=== PATIENT | male | born 1960 | race Caucasian/White ===

== ENCOUNTER 2017-04-10 13:24 | Inpatient (IN) | END 2017-04-22 17:40 | DRG 871 | DX: A41.9 Sepsis, unspecified organism (principal); E13.10 Other specified diabetes mellitus with ketoacidosis without coma; G92 Toxic encephalopathy; E87.2 Acidosis; D61.818 Other pancytopenia; D68.9 Coagulation defect, unspecified; K26.9 Duodenal ulcer, unspecified as acute or chronic, without hemorrhage or perforation; K92.2 Gastrointestinal hemorrhage, unspecified; N39.0 Urinary tract infection, site not specified; I85.00 Esophageal varices without bleeding; K92.1 Melena; Y90.8 Blood alcohol level of 240 mg/100 ml or more; F17.200 Nicotine dependence, unspecified, uncomplicated; G89.29 Other chronic pain; G62.9 Polyneuropathy, unspecified; D69.6 Thrombocytopenia, unspecified; R26.2 Difficulty in walking, not elsewhere classified; D64.9 Anemia, unspecified; B95.2 Enterococcus as the cause of diseases classified elsewhere; F10.129 Alcohol abuse with intoxication, unspecified; K70.31 Alcoholic cirrhosis of liver with ascites; K29.60 Other gastritis without bleeding; K82.8 Other specified diseases of gallbladder; K80.20 Calculus of gallbladder without cholecystitis without obstruction; N50.89 Other specified disorders of the male genital organs; N43.2 Other hydrocele; N45.2 Orchitis; M79.661 Pain in right lower leg; M79.662 Pain in left lower leg; Z59.0 Homelessness; Z79.4 Long term (current) use of insulin; Z98.890 Other specified postprocedural states ==

== ENCOUNTER 2017-11-26 09:36 | Emergency (ER) | END 2017-11-27 18:24 ==

== ENCOUNTER 2018-01-19 09:31 | Emergency (ER) | END 2018-01-19 13:09 | disposition home or self-care (01) ==